=== PATIENT | male | born 1955 | race Caucasian/White ===

== ENCOUNTER 2020-07-13 21:03 | Inpatient (IN) ==
[2020-07-13] MEDS ORDERED: Isovue-370 500 ML BOTTLE IVP ONE (21:38)
[2020-07-13 22:01] LABS: Eosinophils % 0.7 %; Hemoglobin 8.3 g/dL (12.9-16.9)
[2020-07-13 22:03] LABS: Hematocrit 24.7 % (37.5-50.1); Immature Platelets 4.7 % (1.1-6.1); Lymphocytes # 1.2 K/mcL (0.6-4.6); Lymphocytes % 84.4 %; Mean Corpuscular HGB Conc 33.6 g/dL (31.6-35.5); Mean Corpuscular Hemoglobin 37.4 pg (28.0-33.3); Mean Corpuscular Volume 111.3 fL (83.0-100.0); Mean Platelet Volume 11.1 fL (9.4-12.4); Monocytes # 0.1 K/mcL (0.0-1.3); Monocytes % 9.9 %; Neutrophils # 0.1 K/mcL (1.6-8.9); Red Blood Count 2.22 M/mcL (4.19-5.50); Red Cell Distribution Width 16.7 % (11.5-14.5); White Blood Count 1.4 K/mcL (4.3-11.1)
[2020-07-13 22:18] LABS: BUN/Creatinine Ratio 19 (6-26); Blood Urea Nitrogen 11 mg/dL (8-23); Calcium 8.5 mg/dL (8.6-10.3); Carbon Dioxide 28 mEq/L (23-29); Chloride 103 mEq/L (98-107); Glucose 94 mg/dL (70-105); Osmolality,Calculated 283 (280-300); Potassium 3.7 mEq/L (3.5-5.1); Sodium 137 mEq/L (136-145); eGFR For African Americans > 60 (> 60); eGFR For Non-African Americans > 60 (> 60)
[2020-07-13 22:40] LABS: Platelet Count 66 K/mcL (140-400)
[2020-07-13 22:41] LABS: Hypochromasia Present (Not Present); Macrocytosis Present (Not Present); Platelet Estimate Decreased (Normal)
[2020-07-14] MEDS ORDERED: Ondansetron ODT 4 MG TAB.RAPDIS SL PRN (00:56)
[2020-07-14] MEDS ORDERED: Naloxone 0.4 MG/ML INJ IVP PRN (00:56)
[2020-07-14] MEDS: Ringers Solution, Lactated 1,000 ML IVC SCH ×2 (03:11→13:40)
[2020-07-14] MEDS ORDERED: traZODone 50 MG TABLET PO PRN (04:20)
[2020-07-14] MEDS: Piperacillin/Tazobactam 3.375 GM in 0.9 % Sodium Chloride Mini Bag 100 ML IVP SCH ×3 (05:03→21:06)
[2020-07-14 05:25] LABS: INR 1.6; Retculocyte # 0.03 M/mcL (0.05-0.10); Reticulocyte % 1.3 % (1.6-2.8)
[2020-07-14 05:28] LABS: Activated Partial Thrombo Time 18.1 Seconds (26.0-36.0); Eosinophils % 0.9 %; Hematocrit 21.6 % (37.5-50.1); Hemoglobin 7.3 g/dL (12.9-16.9); Immature Platelets 5.7 % (1.1-6.1); Lymphocytes # 0.9 K/mcL (0.6-4.6); Mean Corpuscular HGB Conc 33.8 g/dL (31.6-35.5); Mean Corpuscular Hemoglobin 37.4 pg (28.0-33.3); Mean Corpuscular Volume 110.8 fL (83.0-100.0); Monocytes # 0.2 K/mcL (0.0-1.3); Monocytes % 13.6 %; Neutrophils # 0.1 K/mcL (1.6-8.9); Platelet Count 53 K/mcL (140-400); Red Blood Count 1.95 M/mcL (4.19-5.50); Red Cell Distribution Width 16.6 % (11.5-14.5); Segmented Neutrophils % 5.5 %; White Blood Count 1.1 K/mcL (4.3-11.1)
[2020-07-14 05:35] LABS: Alanine Aminotransferase 8 Units/L (7-52); Albumin 3.2 g/dL (3.5-5.7); Albumin/Globulin Ratio 1.1 (1.1-2.2); Alkaline Phosphatase 78 Units/L (34-104); Aspartate Amino Transferase 8 Units/L (13-39); BUN/Creatinine Ratio 18 (6-26); Bilirubin,Direct 0.2 mg/dL (0.0-0.2); Bilirubin,Indirect 0.4 mg/dL (0.0-1.0); Bilirubin,Total 0.6 mg/dL (0.3-1.0); Blood Urea Nitrogen 10 mg/dL (8-23); C-Reactive Protein 189 mg/L (Less than 10); Calcium 8.1 mg/dL (8.6-10.3); Carbon Dioxide 24 mEq/L (23-29); Chloride 103 mEq/L (98-107); Glucose 99 mg/dL (70-105); Lactate Dehydrogenase 111 Units/L (140-271); Osmolality,Calculated 279 (280-300); Potassium 3.6 mEq/L (3.5-5.1); Sodium 135 mEq/L (136-145); Total Protein 6.2 g/dL (6.4-8.9); eGFR For African Americans > 60 (> 60); eGFR For Non-African Americans > 60 (> 60)
[2020-07-14 06:00] LABS: Folate 21.6 ng/mL (3.0-16.0); Vitamin B12 616 pg/mL (250-1100)
[2020-07-14 06:05] LABS: Macrocytosis Present (Not Present); Platelet Estimate Decreased (Normal)
[2020-07-14] MEDS ORDERED: Dexamethasone 4 MG/ML VIAL IVP SCH ×2 (06:17→08:00)
[2020-07-14] MEDS ORDERED: Acetaminophen 325 MG TABLET PO PRN (06:18)
[2020-07-14 07:04] LABS: HIV-1&2 Antibody & p24 Ag Nonreactive (Nonreactive)
[2020-07-14] MEDS: Gabapentin 400 MG CAPSULE PO SCH ×3 (08:25→21:07)
[2020-07-14] MEDS ORDERED: Lisinopril-HCTZ 20-12.5mg TABLET PO SCH (09:00)
[2020-07-14] MEDS ORDERED: Buprenorphine Hcl/Naloxone Hcl 8-2MG SL SCH (09:00)
[2020-07-14] MEDS: *HR* Buprenorphine HCl 2 MG SUBLINGUAL TABLET SL SCH (10:29)
[2020-07-14 13:05] LABS: % Iron Saturation 28 % (20-55); Iron 66 mcg/dL (65-175); Transferrin 171 mg/dL (203-362)
[2020-07-14 13:13] LABS: Ferritin 286 ng/mL (20-250)
[2020-07-14] MEDS: Acetaminophen 325 MG TABLET PO PRN (13:42)
[2020-07-14] MEDS: *HR* Enoxaparin 100 MG/ML SYRINGE SQ SCH ×2 (13:42→21:06)
[2020-07-14] MEDS ORDERED: Dexamethasone Sodium Phos/PF 10 MG/ML VIAL IVP SCH (16:00)
[2020-07-14] MEDS: Dexamethasone 4 MG/ML VIAL IVP SCH (16:01)
[2020-07-14] MEDS ORDERED: ARMODAFINIL 100 MG PO SCH (18:00)
[2020-07-14] MEDS ORDERED: *HR* Rivaroxaban 10 MG TABLET PO SCH (18:00)
[2020-07-14] MEDS ORDERED: *HR* LORazepam 0.5 MG TABLET PO ONE (23:05)
[2020-07-15] MEDS: Dexamethasone 4 MG/ML VIAL IVP SCH ×4 (00:32→23:42)
[2020-07-15] MEDS: Acetaminophen 325 MG TABLET PO PRN ×2 (03:47→22:48)
[2020-07-15 05:07] LABS: Hematocrit 23.5 % (37.5-50.1); Hemoglobin 8.2 g/dL (12.9-16.9); Immature Granulocytes % 1.1 % (0-4); Immature Platelets 5.7 % (1.1-6.1); Lymphocytes # 0.6 K/mcL (0.6-4.6); Lymphocytes % 69.6 %; Mean Corpuscular HGB Conc 34.9 g/dL (31.6-35.5); Mean Corpuscular Hemoglobin 36.9 pg (28.0-33.3); Mean Corpuscular Volume 105.9 fL (83.0-100.0); Mean Platelet Volume 10.9 fL (9.4-12.4); Monocytes # 0.2 K/mcL (0.0-1.3); Monocytes % 16.3 %; Neutrophils # 0.1 K/mcL (1.6-8.9); Red Blood Count 2.22 M/mcL (4.19-5.50); Red Cell Distribution Width 15.6 % (11.5-14.5)
[2020-07-15 05:09] LABS: INR 1.5; Platelet Count 64 K/mcL (140-400); Prothrombin Time 17.6 Seconds (9.4-12.1)
[2020-07-15 05:11] LABS: White Blood Count 0.9 K/mcL (4.3-11.1)
[2020-07-15 05:24] LABS: BUN/Creatinine Ratio 22 (6-26); Blood Urea Nitrogen 11 mg/dL (8-23); Calcium 8.4 mg/dL (8.6-10.3); Carbon Dioxide 26 mEq/L (23-29); Chloride 102 mEq/L (98-107); Glucose 131 mg/dL (70-105); Magnesium 1.9 mg/dL (1.6-2.6); Osmolality,Calculated 283 (280-300); Potassium 3.8 mEq/L (3.5-5.1); Sodium 136 mEq/L (136-145); eGFR For African Americans > 60 (> 60); eGFR For Non-African Americans > 60 (> 60)
[2020-07-15 05:28] LABS: Platelet Estimate Decreased (Normal)
[2020-07-15] MEDS: Piperacillin/Tazobactam 3.375 GM in 0.9 % Sodium Chloride Mini Bag 100 ML IVP SCH ×3 (05:44→22:25)
[2020-07-15] MEDS ORDERED: 0.9 % Sodium Chloride 500 ML ONE (09:03)
[2020-07-15] MEDS ORDERED: *HR* Midazolam HCl 2 MG/2 ML VIAL IVP ONE (09:05)
[2020-07-15] MEDS ORDERED: *HR* FentaNYL (PF) 100 MCG/2 ML VIAL IVP ONE (09:05)
[2020-07-15] MEDS ORDERED: *HR* FentaNYL (PF) 100 MCG/2 ML VIAL ONE (09:18)
[2020-07-15] MEDS ORDERED: *HR* Midazolam HCl 2 MG/2 ML VIAL ONE (09:18)
[2020-07-15] MEDS: Gabapentin 400 MG CAPSULE PO SCH ×3 (09:52→22:27)
[2020-07-15] MEDS: *HR* Buprenorphine HCl 2 MG SUBLINGUAL TABLET SL SCH (09:52)
[2020-07-15] MEDS: PARoxetine 20 MG TABLET PO SCH (09:53)
[2020-07-15] MEDS: Nicotine 21 MG PATCH.TD24 TD PRN (10:00)
[2020-07-15] MEDS ORDERED: hydrOXYzine pamoate 25 MG CAPSULE PO SCH (16:30)
[2020-07-15] MEDS ORDERED: traZODone 50 MG TABLET PO PRN (17:46)
[2020-07-15] MEDS ORDERED: Apixaban 5 MG TABLET PO SCH (21:00)
[2020-07-15] MEDS: *HR* Enoxaparin 100 MG/ML SYRINGE SQ SCH (22:28)
[2020-07-16] MEDS: Piperacillin/Tazobactam 3.375 GM in 0.9 % Sodium Chloride Mini Bag 100 ML IVP SCH (05:40)
[2020-07-16] MEDS: Gabapentin 400 MG CAPSULE PO SCH (08:32)
[2020-07-16] MEDS: *HR* Buprenorphine HCl 2 MG SUBLINGUAL TABLET SL SCH (08:32)
[2020-07-16] MEDS: PARoxetine 20 MG TABLET PO SCH (08:34)
[2020-07-16] MEDS: *HR* Enoxaparin 100 MG/ML SYRINGE SQ SCH (08:34)
[2020-07-16] MEDS: Dexamethasone 4 MG/ML VIAL IVP SCH (08:35)
[2020-07-16] MEDS ORDERED: Cholecalciferol (D-3) 1,000 UNIT (25MCG) TABLET PO SCH (09:00)
[2020-07-16] MEDS ORDERED: Furosemide 20 MG TABLET PO SCH (09:00)
[2020-07-16] MEDS ORDERED: TRIAMCINOLONE ACETONIDE NS SCH (09:00)
[2020-07-16 09:34] LABS: Hematocrit 24.6 % (37.5-50.1); Hemoglobin 8.5 g/dL (12.9-16.9); Lymphocytes # 0.5 K/mcL (0.6-4.6); Lymphocytes % 70.6 %; Mean Corpuscular HGB Conc 34.6 g/dL (31.6-35.5); Mean Corpuscular Hemoglobin 37.3 pg (28.0-33.3); Mean Corpuscular Volume 107.9 fL (83.0-100.0); Mean Platelet Volume 11.2 fL (9.4-12.4); Monocytes # 0.1 K/mcL (0.0-1.3); Monocytes % 13.2 %; Neutrophils # 0.1 K/mcL (1.6-8.9); Red Blood Count 2.28 M/mcL (4.19-5.50); Red Cell Distribution Width 16.4 % (11.5-14.5); Segmented Neutrophils % 16.2 %
[2020-07-16 09:39] LABS: Platelet Count 59 K/mcL (140-400); White Blood Count 0.7 K/mcL (4.3-11.1)
[2020-07-16 10:03] LABS: Platelet Estimate Marked Decrease (Normal)
[2020-07-16 10:04] LABS: Anisocytosis 1+ (Not Present)
[2020-07-16] MEDS: Nicotine 21 MG PATCH.TD24 TD PRN (10:04)
[2020-07-16 10:14] LABS: BUN/Creatinine Ratio 29 (6-26); Blood Urea Nitrogen 18 mg/dL (8-23); Calcium 8.5 mg/dL (8.6-10.3); Carbon Dioxide 26 mEq/L (23-29); Chloride 104 mEq/L (98-107); Glucose 136 mg/dL (70-105); Osmolality,Calculated 288 (280-300); Potassium 3.8 mEq/L (3.5-5.1); Sodium 137 mEq/L (136-145); eGFR For African Americans > 60 (> 60); eGFR For Non-African Americans > 60 (> 60)
[2020-07-16 10:36] VITALS: BP 106/68
[2020-07-16 18:16] LABS: Lambda Qnt Free Light Chains 27.72 mg/L (5.71-26.30)
[2020-07-17 09:50] LABS: Kappa Qnt Free Light Chains 22.06 mg/L (3.30-19.40)
[2020-07-18 13:39] LABS: Alpha 2 Globulin (PEP) 0.91 g/dL (0.48-1.05); Beta Globulin (PEP) 0.98 g/dL (0.48-1.10)
[2020-07-18 13:40] LABS: IFE Reflexed NOT DONE
== END 2020-07-16 13:01 | disposition home or self-care (01) | DRG 810 ==
LOC: 3BNU 21:03 → EMEROOARM 21:03 → SUATTDRO 07-14 00:20 → 3ANU 07-14 01:15
PROVIDERS: ADMIT Family Medicine; ATTEND Internal Medicine